=== PATIENT | female | born 1990 | race Caucasian/White ===

== ENCOUNTER 2018-07-02 21:57 | Emergency (ER) | payer SELFPAY ==
[2018-07-02 22:11] VITALS: BP 124/76; PULSE 118; RESP 20; TEMP 36.8; O2SAT 100; BMI 33.2
[2018-07-02] MEDS: HYDROMORPHONE 2 MG INJ 1 MG SUBCUT (22:33)
--- NOTE | 2018-07-02 22:39 | ED.SKABFB ---
HPI - Skin/Abscess/Foreign Bdy General Chief complaint: Skin/Abscess/Foreign Body Stated complaint: SORE LUMP ON TAILBONE Time Seen by Provider: 07/02/18 22:00 Source: patient Mode of arrival: ambulatory Limitations: no limitations History of Present Illness HPI narrative: Patient is a 27-year-old female who presents with buttock pain ongoing for last 2-3 days. She said she could feel something coming on for the last 2 days and then today noticed that there was redness and fluctuation. She cannot sit down. She denies any fevers she has never had anything like this in the past. complaint: abscess/boil Onset (ago): day(s) (3) Severity: severe Quality: sharp Pain Consistency: constant Relieving factors: none Exacerbating factors: movement Related Data Previous Rx's Medication Instructions Recorded sulfamethoxazole-trimethoprim 1 tab PO BID 7 Days #14 tab 07/02/18 [Bactrim DS] Allergies Allergy/AdvReac Type Severity Reaction Status Date / Time morphine [MORPHINE] Allergy Mild ANXIETY Unverified 07/02/18 23:03 Review of Systems Review of Systems GENERAL: Denies chills,fever HEENT: Denies throat pain RESPIRATORY: Denies dyspnea, cough, wheezing CARDIOVASCULAR: Denies chest pain, palpitations GASTROINTESTINAL: Denies nausea, vomiting MUSCULOSKELETAL: Denies extremity pain, injury SKIN: Abscess right buttock NEUROLOGIC: Denies weakness, dizziness, headache, numbness 8 point review of systems is negative except for those stated above and HPI PFSH Surgical History Status post delivery Status post cholecystectomy Family History Father ADHD (attention deficit hyperactivity disorder) Bipolar 1 disorder Mother Interstitial cystitis Social History Smoking Status: Current every day smoker Family History Father ADHD (attention deficit hyperactivity disorder) Bipolar 1 disorder Mother Interstitial cystitis Social History Smoking Status: Current every day smoker Exam Initial Vital Signs Initial Vital Signs: Vital Signs Temperature 98.3 F 07/02/18 22:11 Pulse Rate 118 H 07/02/18 22:11 Respiratory Rate 20 07/02/18 22:11 Blood Pressure 124/76 07/02/18 22:11 Pulse Oximetry 100 07/02/18 22:11 GENERAL: Tearful female in pain CARDIOVASCULAR: peripheral pulses in tact, cap refill <2 sec RESPIRATORY: No respiratory distress, speaks in full sentences without difficulty EXTREMITIES: Normal range of motion, no clubbing or edema. Neurovascularly intact NEUROLOGICAL: Cranial nerves II through XII grossly intact. Normal gait and speech. SKIN: Right buttock superior near medial crack 1 cm x 2 cm fluctuation with erythema extending to the left. Approximately 7 cm of erythema no induration Procedures Abscess I/D Site: stephanie-rectal (Right buttock) Side (if applicable): right Sedation/analgesia: other (Dilaudid 1 mg subcu) Local Anesthetic: lidocaine 2% and with epi Amount of anesthesia used (mL): 4 Technique: incised with #11 blade Amount of fluid expressed (mL): 5 Irrigation: No Packing used?: none Complications: pain and bleeding Course Orders Ordered: ED Orders 07/02/18 23:21 Wound Culture and Gram Stain Stat Discontinued Medications Hydromorphone HCl (Dilaudid) 1 mg SUBCUT Q4H PRN PRN Reason: Pain, Severe (7-10) Last Admin: 07/02/18 22:33 Dose: 1 mg Trimethoprim/Sulfamethoxazole (Bactrim Ds Prepack) 1 bottle MISC SEEINSTR ONE Stop: 07/02/18 23:10 Last Admin: 07/02/18 23:19 Dose: Not Given Trimethoprim/Sulfamethoxazole (Bactrim Ds) 1 tab PO NOW ONE Stop: 07/02/18 23:18 Last Admin: 07/02/18 23:22 Dose: 1 tab Trimethoprim/Sulfamethoxazole (Bactrim Ds) 1 tab PO NOW ONE Stop: 07/02/18 23:20 Last Admin: 07/02/18 23:22 Dose: 1 tab Vital Signs - 8 hr 07/02/18 22:11 07/02/18 23:16 07/02/18 23:32 Temperature 98.3 F 98.7 F Pulse Rate 118 H 121 H Respiratory Rate 20 18 Blood Pressure 124/76 Blood Pressure [Right Arm] 123/74 Pulse Oximetry 100 98 MDM - Skin/Abscess/Foreign Bdy MDM Narrative Medical decision making narrative: Good amount of drainage from abscess. It is cultured. The patient put on antibiotics. Patient persistently tachycardic. She was given Dilaudid for pain. Still pain. She is afebrile. At this time I do not suspect sepsis. Discharge Plan Departure Patient Disposition: Home Clinical Impression: Abscess of skin or subcutaneous tissue Qualifiers: Site of cutaneous abscess: buttock Qualified Code(s): L02.31 - Cutaneous abscess of buttock Discharge Date/Time: 07/02/18 23:33 Interventions: ED Discharge Assessment Last Done: 07/02/18 23:32 Instructions: DI for Incision and Drainage of a Skin Abscess, DI for Skin Abscess Activity Restrictions/Additional Instructions: *You have been diagnosed with right buttock abscess *What to do: keep area clean and dry with soap and water *Continue to take medications as directed Bactrim 1 tablet twice a day for 7 days *Follow up with your primary care provider in 2-3 days *Return to ER if you should have increasing pain, redness, swelling or any new, worsening or concerning symptoms Prescriptions: New sulfamethoxazole-trimethoprim [Bactrim DS] 800-160 mg tablet 1 tab PO BID 7 Days Qty: 14 RF: 0 Stand Alone Forms: Work Release Note
[2018-07-02 23:16] VITALS: BP 123/74; PULSE 121; RESP 18; O2SAT 98
[2018-07-02] MEDS: TRIMETH/SULFA 160/800 (DS) TABLET 1 TAB PO ×2 (23:22)
[2018-07-02 23:32] VITALS: TEMP 37.1
== END 2018-07-02 23:33 | disposition home or self-care (01) ==
PROVIDERS: Emergency Provider Emergency Medicine
DX: L02.31 Cutaneous abscess of buttock (principal)
CPT/HCPCS: 10060; 87070; 87075; 87205; 99282; 99283; J1170

== ENCOUNTER 2018-12-22 15:03 | Emergency (ER) | payer OTHER, SELFPAY ==
[2018-12-22 15:17] VITALS: BP 158/99; PULSE 100; RESP 18; TEMP 37.3; O2SAT 98
[2018-12-22 16:06] LABS: RBC Urine None Seen (0-5/HPF); WBC Urine None Seen (0-5/HPF)
[2018-12-22 16:28] LABS: Bacteria Urine Moderate (10-30); Squamous Epithelial Cell Urine 5-10 /HPF (0-5/HPF)
[2018-12-22 16:29] LABS: Culture Indicated Urine Cult Not Indicated
--- NOTE | 2018-12-22 17:20 | ED.SKABFB ---
HPI - Skin/Abscess/Foreign Bdy <Jayla Camara PA-C - Last Filed: 12/22/18 20:41> General Chief complaint: Skin/Abscess/Foreign Body Stated complaint: Paranial Cyst Time Seen by Provider: 12/22/18 17:02 Source: patient Mode of arrival: ambulatory Limitations: no limitations History of Present Illness HPI narrative: This 28-year-old female comes to ED secondary to persistent, painful pilonidal cyst. She has had this since early in the year, was seen here in June. She states that it never heals, intermittently drains pus and bleeds. Last she went to an urgent care clinic due to worsening pain, inability to work and set at her desk. She was found to have used infection due to the drainage and prescribed nystatin. She was referred to a surgeon near there in [place] and was seen. She states she saw the surgeon today and was advised to quit smoking and this did not need urgent surgery. She states that she does not have a local PCP since moving back here, interfering with ADLs and does not know what to do next. She feels like this has continued to drain because it feels wet, not sure whether blood or pus. She denies fever or other new symptoms today. Related Data Home Medications Medication Instructions Recorded Confirmed nystatin 1 applic TOPICAL BIDX7 12/22/18 Previous Rx's Medication Instructions Recorded amoxicillin-pot clavulanate 1 tab PO Q12H #14 tab 12/22/18 [Augmentin] meloxicam 15 mg PO DAILY #20 tab 12/22/18 Allergies Allergy/AdvReac Type Severity Reaction Status Date / Time morphine [MORPHINE] Allergy Mild ANXIETY Verified 12/22/18 15:20 Review of Systems <Jayla Camara PA-C - Last Filed: 12/22/18 20:41> Review of Systems ROS Unobtainable: All systems reviewed & are unremarkable except as noted in HPI and below PFSH <Jayla Camara PA-C - Last Filed: 12/22/18 20:41> Medical History (Updated 12/22/18 @ 17:49 by Jayla Camara PA-C) Migraine headache (Chronic) Surgical History (Updated 12/22/18 @ 17:49 by Jayla Camara PA-C) Status post cholecystectomy (Chronic) Status post delivery (Chronic) Family History (Updated 08/13/13 @ 00:00 by Destinee Dobbins MD) Father ADHD (attention deficit hyperactivity disorder) Bipolar 1 disorder Mother Interstitial cystitis Social History Smoking Status: Current every day smoker Family History (Updated 08/13/13 @ 00:00 by Destinee Dobbins MD) Father ADHD (attention deficit hyperactivity disorder) Bipolar 1 disorder Mother Interstitial cystitis Social History Smoking Status: Current every day smoker Exam <Jayla Camara PA-C - Last Filed: 12/22/18 20:41> Narrative Exam Narrative: GENERAL APPEARANCE: Patient lying on left side, in NAD, intermittently tearful LUNGS: Clear to auscultation bilaterally. HEART: Rate and rhythm regular without murmur, normal S1 and S2, no S3 or S4. DERMATOLOGIC: Of the proximal border of the gluteal cleft right side there is a tender indurated nodule. This does not feel fluctuant. No erythema. There is dried blood in the cleft. Initial Vital Signs Initial Vital Signs: Vital Signs Temperature 99.1 F 12/22/18 15:17 Pulse Rate 100 H 12/22/18 15:17 Respiratory Rate 18 12/22/18 15:17 Blood Pressure 158/99 H 12/22/18 15:17 Pulse Oximetry 98 12/22/18 15:17 <Thor Stewart DO - Last Filed: 12/23/18 14:56> Initial Vital Signs Initial Vital Signs: Vital Signs Temperature 99.1 F 12/22/18 15:17 Pulse Rate 100 H 12/22/18 15:17 Respiratory Rate 18 12/22/18 15:17 Blood Pressure 158/99 H 12/22/18 15:17 Pulse Oximetry 98 12/22/18 15:17 Course <Jayla Camara PA-C - Last Filed: 12/22/18 20:41> Additional Information: Care management has also seen patient today to give her resources for local PCP. She does appear to have chronic pilonidal cyst, will restart antibiotic and refer to surgery but this does not appear to need acute intervention today. She is agreeable with this plan and will call to schedule appointment. Orders Ordered: ED Orders 12/22/18 15:45 Urine Microscopic Stat Vital Signs - 8 hr 12/22/18 15:17 12/22/18 18:35 Temperature 99.1 F Pulse Rate 100 H 87 Respiratory Rate 18 16 Blood Pressure 158/99 H 121/82 Pulse Oximetry 98 99 <Thor Stewart DO - Last Filed: 12/23/18 14:56> Orders Ordered: ED Orders 12/22/18 15:45 Urine Microscopic Stat Vital Signs - 8 hr 12/22/18 15:17 12/22/18 18:35 Temperature 99.1 F Pulse Rate 100 H 87 Respiratory Rate 18 16 Blood Pressure 158/99 H 121/82 Pulse Oximetry 98 99 MDM - Skin/Abscess/Foreign Bdy <Jayla Camara PA-C - Last Filed: 12/22/18 20:41> Lab Data Lab Results 12/22/18 Range/Units 15:45 Urine RBC None seen (0-5/HPF) Urine WBC None seen (0-5/HPF) Ur Squamous Epith Cells 5-10 /hpf H (0-5/HPF) Urine Bacteria Moderate (10-30) H (None) Ur Culture Indicated? Cult not indicated Point of Care Testing Test Results Negative Urine Dip Bedside Urine Glucose Negative Bedside Urine Bilirubin - Negative Bedside Urine Ketone - Negative Urine Specific Olivia 1.030 Bedside Urine Occult Blood - Negative Bedside Urine pH 6.0 Bedside Urine Protein +/- 15 Bedside Urine Urobilinogen - Negative Bedside Urine Nitrite - Negative Bedside Urine Leukocytes - Negative Esterase <DO Norberto Larkin Last Filed: 12/23/18 14:56> Lab Data Lab Results 12/22/18 Range/Units 15:45 Urine RBC None seen (0-5/HPF) Urine WBC None seen (0-5/HPF) Ur Squamous Epith Cells 5-10 /hpf H (0-5/HPF) Urine Bacteria Moderate (10-30) H (None) Ur Culture Indicated? Cult not indicated Point of Care Testing Test Results Negative Urine Dip Bedside Urine Glucose Negative Bedside Urine Bilirubin - Negative Bedside Urine Ketone - Negative Urine Specific Olivia 1.030 Bedside Urine Occult Blood - Negative Bedside Urine pH 6.0 Bedside Urine Protein +/- 15 Bedside Urine Urobilinogen - Negative Bedside Urine Nitrite - Negative Bedside Urine Leukocytes - Negative Esterase Discharge Plan Departure Patient Disposition: Home Clinical Impression: Pilonidal cyst Discharge Date/Time: 12/22/18 18:36 Interventions: ED Discharge Assessment Last Done: 12/22/18 18:35 Instructions: Pilonidal Cyst Activity Restrictions/Additional Instructions: Please continue Sitz baths and warm compresses as much as possible. Please start the antibiotic this evening (I have sent your prescriptions into [facility] in [place] just to make sure you will have time to pick them up) as well as the once daily anti-inflammatory/pain medicine. Please keep pressure off of the area. I do think you have a cyst that has been infected intermittently, right now it appears to have partially drained and there is dried blood around the area. Please call [facility] (I have given you Dr. Wharton's name because he is heart surgeon today, but you can see any of the surgeons there), and let them know you were seen in the emergency room here for this and we referred you. Also, please call the [facility] human resources receptionist 1st thing tomorrow at [phone] and let them know we have referred you for help getting a primary care provider. Please return to the ED in the interim if you have any acutely worsening symptoms. Please remain off of work for a couple of days while starting the antibiotic since you are not able to avoid sitting Prescriptions: New meloxicam 15 mg tablet 15 mg PO DAILY Qty: 20 RF: 0 amoxicillin-pot clavulanate [Augmentin] 875-125 mg tablet 1 tab PO Q12H Qty: 14 RF: 0 No Action nystatin 100,000 unit/gram cream 1 applic topical [id number] RF: 0 Referrals: Kurt Wharton MD [Physician] - Stand Alone Forms: Work Release Note <Thor Stewart DO - Last Filed: 12/23/18 14:56> Cosign ED Attending Ericature Attestation: I was immediately available in the department for consultation. Documentation has been reviewed. I agree with assessment and plan.
--- NOTE | 2018-12-22 18:09 | CM.SWNOTE ---
ED GAMES DEALER Note: ED Provider mentioned to GAMES DEALER that pt has insurance, but does not have a PCP. Met with pt, gave her a paper with information about PCPs. She is interested in having a doctor in [place] and the list provided gave her information about who is and is not accepting new patients. EXCELLENCE CONSULTANT provided reflective and compassionate listening to patient who is dealing with significant pain and frustration. She reported that prior to coming to the ED today, she was seen by a surgeon who informed her that all she needed to do was to quit smoking. Pt was periodically tearful, due to the pain and frustration. She has a supportive home environment, but the pain has been ongoing for 8 months. She stated that the ED provider informed her that she will provide a referral for her. No other social work needs noted.
[2018-12-22 18:35] VITALS: BP 121/82; PULSE 87; RESP 16; O2SAT 99
== END 2018-12-22 18:36 | disposition home or self-care (01) ==
PROVIDERS: Emergency Medicine; Emergency Provider Internal Medicine
DX: L05.91 Pilonidal cyst without abscess (principal)
CPT/HCPCS: 81003; 81015; 81025; 99282; 99283

== ENCOUNTER 2019-03-17 09:37 | Emergency (ER) | payer SELFPAY ==
[2019-03-17 09:43] VITALS: BP 119/69; PULSE 85; RESP 18; TEMP 36.8; O2SAT 97
--- NOTE | 2019-03-17 10:51 | ED_ITS ---
HPI - Eye Problem General Chief complaint: Eye Problems Stated complaint: left eye pain/h[place]/blurry vision/shuts w/ light Time Seen by Provider: 03/17/19 09:55 Source: patient Mode of arrival: Ambulatory Limitations: no limitations History of Present Illness HPI Narrative: 28F smoker with mental health history presents with L eye pain and watering with some blurred vision for the past few days. She denies any i njury or foreign body exposure. She states that it feels much worse when bright light is shined into her eye, it was worsened when she was driving this morning in the dark and head lights would come straight on. She has had some vague left-sided headache associated with this, but it sounds like it started after the vision change. She denies any history of the same. She has uncorrected vision. She denies any upper respiratory symptoms such as runny nose, sore throat or cough. She denies any skin or face pain nor any rash. She has no pain on the tip of her nose or in her left ear MD chief complaint: eye pain and vision change Onset (ago): day(s) Onset description: gradual Duration: intermittent Location: left eye Eye Symptoms: pain, blurry vision and photophobia Place: home Mechanism: none Severity: moderate If Pain, Quality: aching Associated symptoms: none Treatments Prior to Arrival: none Related Data Patient tetanus UTD: Yes Home Medications Medication Instructions Recorded Confirmed nystatin 1 applic TOPICAL BIDX7 12/22/18 Previous Rx's Medication Instructions Recorded amoxicillin-pot clavulanate 1 tab PO Q12H #14 tab 12/22/18 [Augmentin] meloxicam 15 mg PO DAILY #20 tab 12/22/18 Allergies Allergy/AdvReac Type Severity Reaction Status Date / Time morphine [MORPHINE] Allergy Mild ANXIETY Verified 12/22/18 15:20 Review of Systems Constitutional Constitutional: Denies chills, Denies fatigue, Denies fever(s), Denies frequent falls, Denies lethargy and Denies weakness Eyes Eyes: Denies change in vision, Reports eye discharge, Reports irritation and Denies loss of vision ENT Ears, Nose, Mouth, and Throat: Denies change in voice, Denies dizziness, Denies neck pain, Denies sore throat and Denies throat swelling Cardiovascular Cardiovascular: Denies chest pain, Denies irregular heart rhythm, Denies lightheadedness, Denies palpitations, Denies dyspnea, Denies dyspnea on exertion and Denies orthopnea Respiratory Respiratory: Denies cough, Denies dyspnea, Denies dyspnea on exertion and Denies wheezing Gastrointestinal Gastrointestinal: Denies abdominal pain, Denies change in bowel habits, Denies diarrhea, Denies nausea and Denies vomiting Genitourinary Genitourinary: Denies hematuria, Denies flank pain, Denies urinary incontinence and Denies urinary urgency Musculoskeletal Musculoskeletal: Denies back pain, Denies muscle weakness, Denies neck pain, Denies numbness and Denies tingling Integumentary/Breasts Skin/Breast: Denies pruritus, Denies erythema, Denies rash and Denies wounds Neurologic Neurologic: Denies behavioral changes, Denies confusion, Denies dizziness, Denies frequent falls, Denies loss of vision, Denies numbness, Denies tingling and Denies weakness Psychiatric Psychiatric: Denies anxiety, Denies behavioral changes, Denies confusion, Denies depression, Denies homicidal ideation and Denies suicidal ideation Endocrine Endocrine: Denies fatigue, Denies flushing and Denies palpitations Hematologic/Lymphatic Hematologic/Lymphatic: Denies easy bruising Allergic/Immunologic Allergic/Immunologic: Denies urticaria, Denies throat swelling and Denies wheezing Patient History Medical History Migraine headache (Chronic) Surgical History Status post delivery (Chronic) Status post cholecystectomy (Chronic) Family History Father ADHD (attention deficit hyperactivity disorder) Bipolar 1 disorder Mother Interstitial cystitis Social History Smoking Status: Current every day smoker alcohol intake frequency: holidays/special occasions only Substance Use Type: marijuana Exam Narrative Exam Narrative: GEN: AOx3 and in mild distress EYES: Pupils are equal, round, and reactive to light and accommodation. Extraoccular muscles are intact bilaterally. There is no subconjunctival hemorrhage or exudate. No redenss noted. Viewed under Wood's lamp, no fluorescein uptake. Pressure with TonoPen 21mmHg. CHEST: Lungs are clear to auscultation bilaterally and free of wheezes, rales, or rhonchi. Heart rate is regular rhythm, there are no murmurs, clicks, rubs, or gallops. There is no chest wall tenderness. ABD: Abdomen is soft and nontender. There is no guarding or rebound. Bowel sounds are normal in all 4 quadrants. There is no mass or organomegaly. EXT: Full painless ROM of all extremities with no loss of sensation or strength. SKIN: Warm, pink, and dry. No erythema or rash Initial Vital Signs Initial Vital Signs: Vital Signs Temperature 98.2 F 03/17/19 09:43 Pulse Rate 85 03/17/19 09:43 Respiratory Rate 18 03/17/19 09:43 Blood Pressure 119/69 03/17/19 09:43 Pulse Oximetry 97 03/17/19 09:43 Course Orders Ordered: Discontinued Medications Proparacaine HCl (Parcaine 0.5% Ophth Janessa) 1 drops EYE-LEFT NOW ONE Stop: 03/17/19 10:58 Last Admin: 03/17/19 11:21 Dose: 2 drop Documented by: DANIEL Villalobos Consultation #1: Vital Signs Vital signs: Vital Signs - 8 hr 03/17/19 09:43 Temperature 98.2 F Pulse Rate 85 Respiratory Rate 18 Blood Pressure 119/69 Pulse Oximetry 97 Discharge Plan Departure Patient Disposition: Home Clinical Impression: Acute left eye pain Discharge Date/Time: 03/17/19 12:04 Activity Restrictions/Additional Instructions: *You have been diagnosed with [acute left eye pain ] *What to do: *Take medications as directed: artificial tears *Follow up with [facility] today at 230 as we discussed. *Return to ER if you should have any new, worsening or concerning symptoms ] Prescriptions: No Action nystatin 100,000 unit/gram cream 1 applic topical [id number] RF: 0 meloxicam 15 mg tablet 15 mg PO DAILY Qty: 20 RF: 0 amoxicillin-pot clavulanate [Augmentin] 875-125 mg tablet 1 tab PO Q12H Qty: 14 RF: 0 Referrals: Teodoro Milner MD [Physician] - Stand Alone Forms: Work Release Note
[2019-03-17] MEDS: PROPARACAINE 0.5% OPHTH SOL 1 DROPS EYE-LEFT (11:21)
== END 2019-03-17 12:04 | disposition home or self-care (01) ==
PROVIDERS: Emergency Provider Emergency Medicine
DX: H57.12 Ocular pain, left eye (principal)
CPT/HCPCS: 99282; 99283

== ENCOUNTER 2019-06-17 21:08 | Emergency (ER) | payer OTHER, SELFPAY ==
[2019-06-17 21:55] VITALS: BP 156/104; RESP 110; TEMP 36.6; O2SAT 98
--- NOTE | 2019-06-18 00:09 | ED.SKABFB ---
HPI - Skin/Abscess/Foreign Bdy General Chief complaint: Skin/Abscess/Foreign Body Stated complaint: issue with a cyst Time Seen by Provider: 06/18/19 00:09 Source: patient Mode of arrival: Ambulatory Limitations: no limitations History of Present Illness HPI narrative: 28-year-old woman with a history of pilonidal cyst status post infection I and D surgical intervention to try to move the entire cyst had been doing well for the last year when she developed increasing pain in the intergluteal cleft. Pain at this point has increased to the point that she came in recognizing the drainage was likely going to be required. No fevers, no change to bowel or bladder habits Related Data Home Medications Medication Instructions Recorded Confirmed nystatin 1 applic TOPICAL [id number] 12/22/18 Previous Rx's Medication Instructions Recorded amoxicillin-pot clavulanate 1 tab PO Q12H #14 tab 12/22/18 [Augmentin] meloxicam 15 mg PO DAILY #20 tab 12/22/18 clindamycin HCl 300 mg PO Q8H #21 cap 06/18/19 oxycodone-acetaminophen 1 tab PO Q6H PRN #10 tab 06/18/19 Allergies Allergy/AdvReac Type Severity Reaction Status Date / Time morphine [MORPHINE] Allergy Mild ANXIETY Verified 12/22/18 15:20 Review of Systems Review of Systems Narrative: Denies ? fever ? cough ? cold ? chills ? chest pain ? dyspnea ? orthopnea ? wheezing ? abdominal pain ? change to bowel or bladder habits ? nausea vomiting ? Patient History Medical History Migraine headache (Chronic) Surgical History Status post delivery (Chronic) Status post cholecystectomy (Chronic) Family History Father ADHD (attention deficit hyperactivity disorder) Bipolar 1 disorder Mother Interstitial cystitis Social History Smoking Status: Current every day smoker Smoking Status: Current every day smoker alcohol intake frequency: holidays/special occasions only Substance Use Type: marijuana Exam Narrative Exam Narrative: General: Alert appropriate in no acute distress Respiratory: Able to speak in full sentences, no obvious respiratory distress Skin: No obvious rashes, warm and dry. 1.5 cm area at the top of the intergluteal cleft with developing abscess and purulence drainage. No surrounding cellulitis Neurologic: Grossly intact no obvious asymmetries or abnormalities Psych, appropriate insight and affect, cooperative Initial Vital Signs Initial Vital Signs: Vital Signs Temperature 98 F 06/17/19 21:55 Respiratory Rate 110 H 06/17/19 21:55 Blood Pressure 156/104 H 06/17/19 21:55 Pulse Oximetry 98 06/17/19 21:55 Procedures Abscess I/D I&D #1: Site: other (Pilonidal cyst, top of the intergluteal cleft) Side (if applicable): right Local Anesthetic: lidocaine 1% Amount of anesthesia used (mL): 5 Technique: incised with #11 blade Amount of fluid expressed (mL): 8 Irrigation: No Packing used?: plain Complications: pain Course Orders Ordered: ED Orders 06/18/19 01:20 Wound Culture and Gram Stain Stat Discontinued Medications Ibuprofen (Advil) 400 mg PO NOW ONE Stop: 06/18/19 00:16 Last Admin: 06/18/19 00:23 Dose: 400 mg Documented by: HARVEY Lidocaine HCl (Xylocaine 1%) 10 ml INJ NOW ONE Stop: 06/18/19 00:35 Last Admin: 06/18/19 00:59 Dose: Not Given Documented by: TARSHA Lidocaine HCl (Xylocaine 1%) 3 ml INJ INTRA-OP ONE Stop: 06/18/19 00:40 Last Admin: 06/18/19 00:59 Dose: Not Given Documented by: TARSHA Lidocaine HCl (Xylocaine 1%) 6 ml INJ INTRA-OP ONE Stop: 06/18/19 00:50 Last Admin: 06/18/19 00:59 Dose: Not Given Documented by: TARSHA Lidocaine HCl (Xylocaine 1% (Pf)) 4 ml SUBCUT NOW ONE Stop: 06/18/19 00:59 Last Admin: 06/18/19 01:00 Dose: 4 ml Documented by: LUCI Oxycodone/Acetaminophen (Percocet 5/325) 2 tab PO NOW ONE Stop: 06/18/19 00:16 Last Admin: 06/18/19 00:23 Dose: 2 tab Documented by: HARVEY Vital Signs Vital signs: Vital Signs - 8 hr 06/17/19 21:55 06/18/19 01:14 Temperature 98 F Pulse Rate 111 H Respiratory Rate 110 H 20 Blood Pressure 156/104 H Blood Pressure [Left Arm] 107/92 H Pulse Oximetry 98 98 MDM - Skin/Abscess/Foreign Bdy Medical Records Attestation: I reviewed the patient's medical records. MDM Narrative Medical decision making narrative: Pilonidal cyst with out significant cellulitis or deeper extending abscess. Simple I and D in the emergency department as small amount of packing placed to keep the incision open for at least 24 hours. Referred patient back to general surgery for definitive care after the current pilonidal infection has resolved Discharge Plan Departure Patient Disposition: Home Clinical Impression: Cyst, pilonidal, with abscess Clinical Impression: (Ruled Out): Right lower quadrant abdominal pain Discharge Date/Time: 06/18/19 01:27 Instructions: DI for Pilonidal Cyst Drainage and Removal Activity Restrictions/Additional Instructions: You do have a pilonidal cyst. It has been drained. The discharge has been sent for culture. I am going to put you on clindamycin, 300mg 3x/day to help with infection. Please leave the drain in for at least 24 hours. You can remove it when you are in the shower. Do expect continued drainage for a few days. Use 1 percoset and 2 over the counter ibuprofen every 6 hours as needed to help control pain. Please schedule an apt with [facility] to discuss more definitive treatment of this cyst. I hope you heal quickly. Prescriptions: New oxycodone-acetaminophen 5-325 mg tablet 1 tab PO Q6H PRN (Reason: pain) Qty: 10 RF: 0 clindamycin HCl 300 mg capsule 300 mg PO Q8H Qty: 21 RF: 0 No Action nystatin 100,000 unit/gram cream 1 applic topical [id number] RF: 0 meloxicam 15 mg tablet 15 mg PO DAILY Qty: 20 RF: 0 amoxicillin-pot clavulanate [Augmentin] 875-125 mg tablet 1 tab PO Q12H Qty: 14 RF: 0 Referrals: Carlos Rangel MD [Physician] -
[2019-06-18] MEDS: IBUPROFEN 400 MG TABLET PO (00:23)
[2019-06-18] MEDS: OXYCODONE/ACETAMINOPHEN 5/325 TABLET 2 TAB PO (00:23)
[2019-06-18] MEDS: LIDOCAINE 1% (PF) 2 ML (00:55)
[2019-06-18] MEDS: LIDOCAINE 1% (PF) 4 ML (00:56)
[2019-06-18] MEDS: LIDOCAINE 1% (PF) 4 ML SUBCUT (01:00)
[2019-06-18 01:14] VITALS: BP 107/92; PULSE 111; RESP 20; O2SAT 98
--- NOTE | 2019-06-18 01:26 | PC.NURSE ---
DR Guaman drained the cyst on her tailbone and packed it.I was not in the room with her.
== END 2019-06-18 01:27 | disposition home or self-care (01) ==
PROVIDERS: Emergency Provider Emergency Medicine
DX: L05.01 Pilonidal cyst with abscess (principal)
CPT/HCPCS: 10060; 87070; 87077; 87186; 87205; 99283

== ENCOUNTER 2019-07-06 09:03 | Day surgery (SDC) | payer OTHER, SELFPAY ==
[2019-07-03 11:56] VITALS: BMI 33.7
[2019-07-06] VITALS (11 sets, daily range): BP systolic 102–124; BP diastolic 63–84; PULSE 75–103; RESP 10–21; TEMP 36.3–36.7; O2SAT 97–100; BMI 33.7
[2019-07-06] MEDS: LACTATED RINGERS 1,000 ML 42 ML IV (09:31)
--- NOTE | 2019-07-06 09:31 | PM.PREOP ---
Pre-operative Note Interval Note History & Physical reviewed/Exam performed by Physician: Yes Changes to H&P: No
[2019-07-06] MEDS: CEFAZOLIN 2 GM/100 ML FROZ.PIGGY IV (09:47)
[2019-07-06] MEDS: CLINDAMYCIN 900 MG/50 ML PIGGYBACK 50 MG IV (10:07)
--- NOTE | 2019-07-06 10:24 | SUR.OPER ---
Prone on padded OR bed, head in foam head support, gel chest rolls, gel pad under knees, pillow under lower legs, toes free of pressure, arms secured on padded arm boards at <90 degrees abduction. Safety belt at waist
[2019-07-06] MEDS: BUPIVACAINE 0.5% W/ EPI (PF) 10 ML VIAL 30 ML INJ (10:31)
[2019-07-06] MEDS: BACITRACIN 28 GM OINT 1 APPLIC TOP (10:32)
--- NOTE | 2019-07-06 11:02 | PM.OP.1 ---
Operative Date/Time/Diagnoses Date of procedure: 07/06/19 Time of procedure: 11:02 Pre-op diagnosis: Recurrence pilonidal cyst Post-op diagnosis: same Procedure & Clinicians Procedure: Excision of complicated closure post Same procedure as scheduled: Yes Indications: Recurrent symptoms in the area of a pilonidal cyst that has been incised and drained in the distant past Surgeon: Carlos Rangel Click Yes if Unassisted: Yes Anesthesia Type: General Operative Notes Findings: Area 6 x 4 cm excised with shift of the closure off midline. Closure Type: primary Specimen(s): other (Pilonidal cyst) Prosthetic devices, grafts, tissues, transplants, or devices: None Estimated Blood Loss (mL): 10 Blood products transfused: none Procedure in detail: The patient was this omkar-knife prone on the operating room table after undergoing general endotracheal anesthesia. She had been appropriately padded. She was prepped and draped in the usual fashion. Local anesthetic was infiltrated in a field block fashion around the area involved. Any lips was made with the closure to be centered just to the right of midline. The entire area was excised. I did not appear to enter into the cyst or chronic inflamed cavity. He stasis was achieved with cautery. The fat at the right side was incised about 1-1 and have cm below skin level to allow for some movement of the skin. The deep subcu was closed with interrupted 2 0 Vicryl. More superficially 3 0 Vicryl was used to close the subcu and the skin was brought together with interrupted 4 0 Vicryl and finally closed with interrupted vertical mattress 3 0 nylon sutures dressing was applied and the patient was flipped back onto her stretcher extubated taken recovery area in good condition Complications: none Post-operative Condition: stable Disposition: PACU Plan for aftercare: Follow-up in the office
[2019-07-06] MEDS: fentaNYL 100 MCG/2 ML INJ IV ×2 (11:28→11:38)
--- NOTE | 2019-07-06 11:31 | SUR.PHASEI ---
Pt arrived with oral airway, airway out, breathing on own no difficulty, medicated with fentanyl.
[2019-07-06] MEDS: OXYCODONE/ACETAMINOPHEN 5/325 TABLET 1 TAB PO (11:59)
== END 2019-07-06 12:53 | disposition home or self-care (01) ==
PROVIDERS: Referring Provider Specialist; Visit Provider Specialist
PROC: (CPT 11771; principal; 2019-07-06 10:15)
DX: L05.91 Pilonidal cyst without abscess (principal)
CPT/HCPCS: 11771; J0330; J0690; J1100; J1885; J2250; J2405; J2704; J3010

== ENCOUNTER 2019-08-03 10:00 | Emergency (ER) | payer OTHER, SELFPAY ==
--- NOTE | 2019-08-03 | DI.US.S_ITS ---
PROCEDURE: US PELVIC COMPLETE INDICATIONS: RLQ PAIN TECHNIQUE: Real-time scanning was performed of the pelvic organs, with image documentation. Additional endovaginal scanning was necessary due to incomplete visualization of the adnexal and endometrial structures by transabdominal scanning. COMPARISON: [facility], , PELVIC COMPLETE, 04/23/2014, 23:43. FINDINGS: Transabdominal scanning: Limited scanning through the kidneys shows no hydronephrosis. No pathologic free abdominal or pelvic fluid. Endovaginal scanning: Uterus: Uterus is normal in size at 4.2 x 4.6 x 6.1 cm. The endometrium measures 16 mm in combined thickness. Intrauterine device is noted in appropriate location. Ovaries: Right ovary measures 36 x 25 x 40 mm. The left ovary measures 29 x 15 x 23 mm. There is a complex focus within the right ovary measuring 37 x 25 x 27 mm. IMPRESSION: Complex right ovarian cyst as above. Dictated by: Mojgan Kelsey M.D. on 08/03/2019 at 13:01 Approved by: Mojgan Kelsey M.D. on 08/03/2019 at 13:02
[2019-08-03 10:07] VITALS: BP 114/96; PULSE 91; RESP 18; TEMP 36.6; O2SAT 98; BMI 35.2
--- NOTE | 2019-08-03 10:10 | ED.GENADULT ---
HPI - General Adult General Chief complaint: Abdominal Pain Stated complaint: POSSIBLE RUPTURE OF RIGHT SIDE CYCST Time Seen by Provider: 08/03/19 10:09 History of Present Illness HPI narrative: 28-year-old woman with past medical history significant for pilonidal cyst for which she had surgery a week and half ago. Presents with acute onset right lower quadrant pain starting last night associated with nausea vomiting low-grade fever slight dizziness when she stands up and headache. Gotten worse over the last 12 hours and she notes it is severe enough that when she doubles over in pain the pain is radiating up to her right flank and along to the upper portion of the right buttocks which is close to her recent pilonidal cyst surgical site . Related Data Previous Rx's Medication Instructions Recorded cephalexin 500 mg capsule 500 mg PO QID #20 cap 07/29/19 metronidazole 500 mg tablet 500 mg PO TID #14 tab 07/29/19 Allergies Allergy/AdvReac Type Severity Reaction Status Date / Time morphine [MORPHINE] Allergy Mild ANXIETY Verified 07/29/19 15:43 Review of Systems Review of Systems Narrative: All systems reviewed and are unremarkable except as noted in HPI and below Patient History Medical History Anxiety (Acute) Bipolar affective disorder (Acute) Migraine headache (Chronic) Ovarian cyst (Acute) PTSD (post-traumatic stress disorder) (Acute) Surgical History History of excision of pilonidal cyst (Inactive) Status post delivery (Chronic) Status post cholecystectomy (Chronic) Family History Father ADHD (attention deficit hyperactivity disorder) Bipolar 1 disorder Mother Interstitial cystitis Social History marital status: household members: spouse and children occupational status: employed Smoking Status: Current every day smoker alcohol intake: current substance use type: does not use Smoking Status: Current every day smoker alcohol intake frequency: holidays/special occasions only Substance Use Type: marijuana Exam Narrative Exam Narrative: General: Healthy appearing, in acute pain. Able to give a complete and coherent history. Well-nourished well-developed HEENT: Moist mucous membranes, normal sclera with reactive pupils, Neck: No JVD, supple Respiratory: Lungs are clear to auscultation, no wheezing no rales no rhonchi. Full and symmetrical air movement Cardiac: Regular rate and rhythm no murmurs no bruits Abdomen: Soft, tender in the right lower quadrant with mild rebound, no guarding. Radiates to the right flank. Hypoactive bowel tones, Skin: Warm and dry, no rashes. Pilonidal cyst surgical site is well healed, nontender, no fluctuance, no erythema Neurologic: Grossly neurologically intact with no obvious asymmetries or abnormalities Extremities: No trauma, well perfused Psych: Cooperative, appropriate insight and affect Initial Vital Signs Initial Vital Signs: Vital Signs Temperature 97.8 F 08/03/19 10:07 Pulse Rate 91 H 08/03/19 10:07 Respiratory Rate 18 08/03/19 10:07 Blood Pressure 114/96 H 08/03/19 10:07 Pulse Oximetry 98 08/03/19 10:07 Course Orders Ordered: ED Orders 08/03/19 10:23 Urinalysis and Microscopic Stat 08/03/19 10:25 Complete Blood Count AUTO DIFF Stat Comprehensive Metabolic Panel Stat 08/03/19 10:58 US abdomen limited Stat Discontinued Medications Hydromorphone HCl (Dilaudid) 0.5 mg IV NOW ONE Stop: 08/03/19 10:24 Last Admin: 08/03/19 10:35 Dose: 0.5 mg Documented by: EKATERINAT Sodium Chloride (Normal Saline 0.9%) 1,000 mls @ 1,000 mls/hr IV BOLUS ONE Stop: 08/03/19 11:22 Last Infusion: 08/03/19 13:00 Dose: 0 mls/hr Documented by: Admin: 08/03/19 10:36 Dose: 1,000 mls/hr Documented by: CPRARTUROT Ondansetron HCl (Zofran) 4 mg IV NOW ONE Stop: 08/03/19 10:24 Last Admin: 08/03/19 10:35 Dose: 4 mg Documented by: CPRARTUROT Vital Signs Vital signs: Vital Signs - 8 hr 08/03/19 10:07 08/03/19 11:18 08/03/19 12:31 Temperature 97.8 F Pulse Rate 91 H 88 76 Respiratory Rate 18 14 14 Blood Pressure 114/96 H Blood Pressure [Right Arm] 144/66 H 125/70 Pulse Oximetry 98 98 99 Medical Decision Making Medical Records Medical records reviewed: Yes I reviewed the patient's medical records. Lab Data Lab results reviewed: Yes I reviewed the patient's lab results. Result diagrams: 08/03/19 10:25 08/03/19 10:25 Labs: Lab Results 08/03/19 08/03/19 Range/Units 10:25 10:25 WBC 5.1 (4.5-11.0) X10^3/uL RBC 4.15 (4.0-5.2) X10^6/uL Hgb 13.9 (12.0-16.0) g/dL Hct 39.3 (36-46) % MCV 94.8 (80-100) fL MCH 33.4 (26-34) PG MCHC 35.2 (30-36) % RDW 11.9 (11.6-14.8) % Plt Count 337 (150-400) X10^3/uL Neut % (Auto) 48.1 L (50-75) % Lymph % (Auto) 39.6 (25-40) % [place] % (Auto) 6.6 (3-14) % Eos % (Auto) 4.3 H (2-4) % Baso % (Auto) 1.4 (0-2) % Neut # (Auto) 2400 (7410-8244) /uL Lymph # (Auto) 2000 (2066-6947) /uL [place] # (Auto) 300 (0-900) /uL Eos # (Auto) 200 (0-450) /uL Baso # (Auto) 100 (0-100) /uL Sodium 137 (137-145) mmol/L Potassium 4.0 (3.4-5.1) mmol/L Chloride 105 (98-107) mmol/L Carbon Dioxide 25 (22-32) mmol/L BUN 6 L (7-17) mg/dL Creatinine 0.60 (0.52-1.04) mg/dL Estimated GFR > 60.0 (>60) mL/min BUN/Creatinine Ratio 10.0 (6-22) Glucose 101 H (70-100) mg/dL Calcium 9.3 (8.4-10.2) mg/dL Total Bilirubin 0.2 (0.2-1.3) mg/dL AST 45 H (14-36) IU/L ALT 45 H (<35) IU/L Alkaline Phosphatase 71 (38-126) U/L Total Protein 7.5 (6.3-8.2) g/dL Albumin 4.5 (3.5-5.0) g/dL Globulin 3.0 (1.7-4.1) g/dL Albumin/Globulin Ratio 1.5 (1.0-2.8) Point of Care Testing Test Results Negative Point of care testing: Point of Care Testing Test Results Negative Imaging Data Pelvic ultrasound: Radiologist's Impression: IMPRESSION: 1. Complex right ovarian cyst. 2. Dilated serpiginous structure suspected to represent adjacent hydrosalpinx on the right. Dictated by: Mojgan Kelsey M.D. on 08/03/2019 at 12:40 Limited abdominal ultrasound: Radiologist's Impression: IMPRESSION: Nonvisualization of the appendix well-visualized adenopathy or free fluid. Dictated by: Mojgan Kelsey M.D. on 08/03/2019 at 12:39 MDM Narrative Medical decision making narrative: 28-year-old woman with a Mirena IUD for control presents with right lower quadrant pain and has a complex focus within the right ovary. Scan was reviewed by myself and Dr. Askew. He agrees that watchful waiting would be appropriate with non emergent follow-up recommended. Findings are shared with Lilly. She is feeling better. Recommended to Naprosyn b.i.d. and as needed Tylenol through the day to help with the cyst pain. Encouraged her to come back if she is having worsening pain or lightheadedness and clearly reviewed signs and symptoms of cyst rupture with intraperitoneal bleeding. At this time she is safe for home discharge Discharge Plan Departure Patient Disposition: Home Clinical Impression: Complex cyst of right ovary Instructions: DI for Ovarian Cyst Activity Restrictions/Additional Instructions: Thank you for coming in today Your workup is reassuring. There is no evidence of acute like threatening issue today. You do have a right ovarian cyst that is causing your discomfort. At this time, it is safe to see if your body will simply resorb this cyst. I would recommend 2 Aleve in the morning and 2 Aleve at night since every day for the next few days to deal with the pain. After that you can use it only as needed. If you are having additional pain throughout the day you can add Tylenol. At some point in the future you will need to be seen by db2 systems programmer to make sure that this cyst has completely resolved. If you have worsening pain or increasing dizziness it would be very appropriate to return to the emergency department for additional evaluation. Please do initial of your antibiotics related to the pilonidal cyst procedure I wish you the best in healing. Prescriptions: No Action metronidazole [Flagyl] 500 mg tablet 500 mg PO TID Qty: 14 RF: 0 cephalexin [Keflex] 500 mg capsule 500 mg PO QID Qty: 20 RF: 0
[2019-08-03 10:35] LABS: Add Manual Diff / Slide Review NO; Basophils Absolute Auto 100 /uL (0-100); Basophils Percent Auto 1.4 % (0-2); Eosinophils Absolute Auto 200 /uL (0-450); Eosinophils Percent Auto 4.3 % (2-4); Hematocrit 39.3 % (36-46); Hemoglobin 13.9 g/dL (12.0-16.0); Lymphocytes Absolute Auto 2000 /uL (1100-4500); Lymphocytes Percent Auto 39.6 % (25-40); Mean Corpuscular HGB Conc 35.2 % (30-36); Mean Corpuscular Hemoglobin 33.4 PG (26-34); Mean Corpuscular Volume 94.8 fL (80-100); Monocytes Absolute Auto 300 /uL (0-900); Monocytes Percent Auto 6.6 % (3-14); Neutrophils Absolute Auto 2400 /uL (1500-7000); Neutrophils Percent Auto 48.1 % (50-75); Platelet Count 337 X10^3/uL (150-400); Red Blood Cell Count 4.15 X10^6/uL (4.0-5.2); Red Cell Distribution Width 11.9 % (11.6-14.8); White Blood Cell Count 5.1 X10^3/uL (4.5-11.0)
[2019-08-03] MEDS: HYDROMORPHONE 0.5 MG INJ IV (10:35)
[2019-08-03] MEDS: ONDANSETRON 4 MG/2 ML INJ IV (10:35)
[2019-08-03] MEDS: SODIUM CHLORIDE 0.9% 1,000 ML 1000 ML IV (10:36)
[2019-08-03 10:51] LABS: Alanine Aminotransferase 45 IU/L (<35); Albumin 4.5 g/dL (3.5-5.0); Albumin Globulin Ratio 1.5 (1.0-2.8); Alkaline Phosphatase 71 U/L (38-126); Aspartate Aminotransferase 45 IU/L (14-36); Bilirubin Total 0.2 mg/dL (0.2-1.3); Blood Urea Nitrogen 6 mg/dL (7-17); Calcium 9.3 mg/dL (8.4-10.2); Carbon Dioxide 25 mmol/L (22-32); Chloride 105 mmol/L (98-107); Estimated Glomerular Filt Rate > 60.0 mL/min (>60); Glucose 101 mg/dL (70-100); HEMOLYSIS < 15 (0-50); Sodium 137 mmol/L (137-145); Total Protein 7.5 g/dL (6.3-8.2)
--- NOTE | 2019-08-03 10:58 | DI.US.S_ITS ---
PROCEDURE: US ABDOMEN LIMITED INDICATIONS: RLQ PAIN. APPENDICITIS OR GYNECOLOGICAL ISSUE TECHNIQUE: Real-time focused scanning was performed of the abdomen with attention to the appendix, with image documentation. COMPARISON: [facility], US, US PELVIC COMPLETE, 08/03/2019, 12:01. [facility], CT, ABDOMEN/PELVIS WITH CONTRAST, 05/09/2015, 23:53. FINDINGS: Appendix visualization: Not visualized Associated findings: Tenderness on exam: Present Adenopathy: No visualized enlarged lymph nodes. No free fluid. IMPRESSION: Nonvisualization of the appendix well-visualized adenopathy or free fluid. Dictated by: Mojgan Kelsey M.D. on 08/03/2019 at 12:39 Approved by: Mojgan Kelsey M.D. on 08/03/2019 at 12:40
[2019-08-03 11:18] VITALS: BP 144/66; PULSE 88; RESP 14; O2SAT 98
[2019-08-03 12:31] VITALS: BP 125/70; PULSE 76; RESP 14; O2SAT 99
[2019-08-03 14:57] VITALS: BP 125/70; PULSE 88; RESP 14; O2SAT 98
[2019-08-03] MEDS: KETOROLAC 60 MG/2 ML VIAL 15 MG IV (14:57)
== END 2019-08-03 15:00 | disposition home or self-care (01) ==
PROVIDERS: Emergency Provider Emergency Medicine
DX: N83.201 Unspecified ovarian cyst, right side (principal)
CPT/HCPCS: 36415; 76705; 76830; 76856; 80053; 81025; 85025; 96361; 96374; 96375; 99284; J1170; J1885; J2405

== ENCOUNTER → 2019-08-13 14:58 | Outpatient (CLI) | payer OTHER, SELFPAY ==
[2019-08-14 11:10] LABS: Influenza A - CEPHEID Flu A NEGATIVE (NEGATIVE); Influenza B - CEPHEID Flu B NEGATIVE (NEGATIVE)
[2019-08-17 06:03] LABS: COVID19 Sendout Not Detected (Not Detected)
== END ==
PROVIDERS: Visit Provider Registered Nurse
DX: R05 Cough (principal); R50.9 Fever, unspecified
CPT/HCPCS: 87502; 87635

== ENCOUNTER 2020-02-28 22:37 | Emergency (ER) | payer SELFPAY ==
[2020-02-28 22:47] VITALS: BP 144/63; PULSE 77; RESP 18; TEMP 36.8; O2SAT 99
--- NOTE | 2020-02-28 22:56 | ED.BACK ---
HPI - Back Pain/Injury General Chief Complaint: Extremity Injury, Upper Stated Complaint: stretching led to pain in back Time Seen by Provider: 02/28/20 22:41 Source: patient Mode of arrival: Ambulatory Limitations: no limitations History of Present Illness HPI Narrative: 29-year-old female daily smoker with history of migraines presents with a chief complaint of severe right upper back pain since playing around with her niece earlier this evening. She had attempted to pass a broomstick from the front to her back without bending her elbow and felt a sudden pain in her right upper back underneath her shoulder blade. She has full but painful range of motion and denies any numbness, tingling or weakness. Her pain is worse with motion and improves with rest. MD Complaint: back pain and back injury Onset (ago): hour(s) Duration: constant Similar Symptoms Previously: No Location: thoracic spine Severity: severe Quality: sharp Radiation: none Relieving factors: immobilization Exacerbating factors: movement Context: turning/twisting Associated symptoms: denies other symptoms Related Data Previous Rx's Medication Instructions Recorded cephalexin 500 mg capsule 500 mg PO QID #20 cap 07/29/19 metronidazole 500 mg tablet 500 mg PO TID #14 tab 07/29/19 cyclobenzaprine 10 mg PO TID PRN #14 tab 02/28/20 ketorolac 10 mg PO Q6H PRN #14 tab 02/28/20 Allergies Allergy/AdvReac Type Severity Reaction Status Date / Time morphine [MORPHINE] Allergy Mild ANXIETY Verified 08/05/19 09:48 Review of Systems Constitutional Constitutional: Denies chills, Denies fatigue, Denies fever(s), Denies frequent falls, Denies lethargy and Denies weakness Eyes Eyes: Denies change in vision, Denies eye discharge, Denies irritation and Denies loss of vision ENT Ears, Nose, Mouth, and Throat: Denies change in voice, Denies dizziness, Denies neck pain, Denies sore throat and Denies throat swelling Cardiovascular Cardiovascular: Denies chest pain, Denies irregular heart rhythm, Denies lightheadedness, Denies palpitations, Denies dyspnea, Denies dyspnea on exertion and Denies orthopnea Respiratory Respiratory: Denies cough, Denies dyspnea, Denies dyspnea on exertion and Denies wheezing Gastrointestinal Gastrointestinal: Denies abdominal pain, Denies change in bowel habits, Denies diarrhea, Denies nausea and Denies vomiting Musculoskeletal Musculoskeletal: Reports back pain, Denies neck pain and Denies numbness Integumentary/Breasts Skin/Breast: Denies pruritus, Denies erythema, Denies rash and Denies wounds Neurologic Neurologic: Denies behavioral changes, Denies confusion, Denies dizziness, Denies frequent falls, Denies loss of vision, Denies numbness and Denies weakness Psychiatric Psychiatric: Denies anxiety, Denies behavioral changes, Denies confusion, Denies depression, Denies homicidal ideation and Denies suicidal ideation Endocrine Endocrine: Denies fatigue, Denies flushing and Denies palpitations Hematologic/Lymphatic Hematologic/Lymphatic: Denies easy bruising Allergic/Immunologic Allergic/Immunologic: Denies urticaria, Denies throat swelling and Denies wheezing Patient History Medical History Anxiety (Acute) Bipolar affective disorder (Acute) Migraine headache (Chronic) Ovarian cyst (Acute) PTSD (post-traumatic stress disorder) (Acute) Surgical History History of excision of pilonidal cyst (Inactive) Status post delivery (Chronic) Status post cholecystectomy (Chronic) Family History Father ADHD (attention deficit hyperactivity disorder) Bipolar 1 disorder Mother Interstitial cystitis Social History marital status: household members: spouse and children occupational status: employed Smoking Status: Current every day smoker alcohol intake: current substance use type: does not use Smoking Status: Current every day smoker tobacco type: cigarettes alcohol intake frequency: holidays/special occasions only Substance Use Type: marijuana Exam Narrative Exam Narrative: GEN: AOx3 and in mild distress EYES: Pupils are equal, round, and reactive to light and accommodation. Extraoccular muscles are intact bilaterally. There is no subconjunctival hemorrhage or exudate. CHEST: Lungs are clear to auscultation bilaterally and free of wheezes, rales, or rhonchi. Heart rate is regular rhythm, there are no murmurs, clicks, rubs, or gallops. There is no chest wall tenderness. ABD: Abdomen is soft and nontender. There is no guarding or rebound. Bowel sounds are normal in all 4 quadrants. There is no mass or organomegaly. EXT: Full painless ROM of all extremities with no loss of sensation or strength. BACK: Tender to palpation under R scapula, worse with palpation and motion of RUE. No palpable mass or crepitance. SKIN: Warm, pink, and dry. No erythema or rash Initial Vital Signs Initial Vital Signs: Vital Signs Temperature 98.2 F 02/28/20 22:47 Pulse Rate 77 02/28/20 22:47 Respiratory Rate 18 02/28/20 22:47 Blood Pressure 144/63 H 02/28/20 22:47 Pulse Oximetry 99 02/28/20 22:47 Procedures Orthopedic Splinting/Casting Injury #1: Side: right Upper Extremity Injury Location: shoulder Upper Extremity Immobilizer: sling/shoulder immobilizer Post splinting neuro exam: intact Post splinting vascular exam: intact Placed by: Nursing Course Orders Ordered: Discontinued Medications Hydrocodone Bitart/Acetaminophen (Vicodin 5/325 Prepack) 1 bottle MISC SEEINSTR ONE Stop: 02/28/20 23:04 Last Admin: 02/28/20 23:12 Dose: 1 bottle Documented by: RDIN Cyclobenzaprine HCl (Flexeril 10 Mg Prepack) 1 bottle MISC SEEINSTR ONE Stop: 02/28/20 23:04 Last Admin: 02/28/20 23:12 Dose: 1 bottle Documented by: CARLOS Ketorolac Tromethamine (Toradol) 60 mg IM NOW ONE Stop: 02/28/20 23:04 Last Admin: 02/28/20 23:11 Dose: 60 mg Documented by: CARLOS Vital Signs Vital signs: Vital Signs - 8 hr 02/28/20 22:47 Temperature 98.2 F Pulse Rate 77 Respiratory Rate 18 Blood Pressure 144/63 H Pulse Oximetry 99 Discharge Plan Departure Patient Disposition: Home Clinical Impression: Acute thoracic myofascial strain Qualifiers: Encounter type: initial encounter Qualified Code(s): S29.019A - Strain of muscle and tendon of unspecified wall of thorax, initial encounter Discharge Date/Time: 02/28/20 23:21 Instructions: DI for Thoracic Back Pain Activity Restrictions/Additional Instructions: *You have been diagnosed with [acute thoracic myofascial strain] *What to do: *Take medications as directed *Follow up with your primary care provider in 2-3 days, call for an appointment. Let them know you were seen in the Emergency Department and that we ask that you be seen in follow up *Return to ER if you should have any new, worsening or concerning symptoms Prescriptions: New cyclobenzaprine 10 mg tablet 10 mg PO TID PRN (Reason: muscle spasm) Qty: 14 RF: 0 ketorolac 10 mg tablet 10 mg PO Q6H PRN (Reason: pain) Qty: 14 RF: 0 No Action metronidazole [Flagyl] 500 mg tablet 500 mg PO TID Qty: 14 RF: 0 cephalexin [Keflex] 500 mg capsule 500 mg PO QID Qty: 20 RF: 0
[2020-02-28] MEDS: KETOROLAC 60 MG/2 ML VIAL IM (23:11)
[2020-02-28] MEDS: CYCLOBENZAPRINE 10 MG PREPACK 1 BOTTLE MISC (23:12)
[2020-02-28] MEDS: HYDROCODONE/ACET 5/325 PREPACK 1 BOTTLE MISC (23:12)
== END 2020-02-28 23:21 | disposition home or self-care (01) ==
PROVIDERS: Emergency Provider Emergency Medicine
DX: S29.019A Strain of muscle and tendon of unspecified wall of thorax, initial encounter (principal)
CPT/HCPCS: 96372; 99283; J1885

== ENCOUNTER 2020-11-14 11:15 | Emergency (ER) | payer SELFPAY ==
[2020-11-14 11:22] VITALS: BP 117/81; PULSE 83; RESP 14; TEMP 36.7; O2SAT 99
[2020-11-14] MEDS: ONDANSETRON 4 MG ODT PO (11:27)
[2020-11-14 14:31] VITALS: BP 110/70; PULSE 78; TEMP 37.4; O2SAT 94
[2020-11-14] MEDS: SODIUM CHLORIDE 0.9% 1,000 ML 1000 ML IV (14:43)
[2020-11-14] MEDS: diphenhydrAMINE 50 MG/ML VIAL 25 MG IV (15:09)
[2020-11-14] MEDS: METOCLOPRAMIDE 10 MG/2 ML INJ IV (15:11)
[2020-11-14] MEDS: KETOROLAC 30 MG/ML VIAL 15 MG IV (15:13)
--- NOTE | 2020-11-14 16:13 | ED_ITS ---
HPI - Headache General Chief Complaint: Headache Stated Complaint: migraine, started this morning, nausea, vomiting Time Seen by Provider: 11/14/20 16:13 Source: patient and family Mode of arrival: Wheelchair Limitations: no limitations History of Present Illness HPI Narrative: 29-year-old female comes with complaint of migraine. Patient states her to pattern but slightly worse intensity. She is to have quite fr equent migraines and had not had them recently. Patient states she had nausea vomiting this morning with her typical aura. Patient states she was unable to keep anything down so she came here in the department. She states used to be on a sumatriptan type medication but stopped that is it was on fever helpful. She has not had any new recent exacerbated factors such as dehydration, insomnia any new medications or other changes. Patient denies any other medical issues. Related Data Previous Rx's Medication Instructions Recorded cephalexin 500 mg capsule 500 mg PO QID #20 cap 07/29/19 metronidazole 500 mg tablet 500 mg PO TID #14 tab 07/29/19 cyclobenzaprine 10 mg PO TID PRN #14 tab 02/28/20 ketorolac 10 mg PO Q6H PRN #14 tab 02/28/20 Allergies Allergy/AdvReac Type Severity Reaction Status Date / Time morphine [MORPHINE] Allergy Mild ANXIETY Verified 11/14/20 11:25 Review of Systems Review of Systems ROS Unobtainable: All systems reviewed & are unremarkable except as noted in HPI and below Patient History Medical History Anxiety Bipolar affective disorder Migraine headache Ovarian cyst PTSD (post-traumatic stress disorder) Surgical History History of excision of pilonidal cyst Status post delivery Status post cholecystectomy Family History Father ADHD (attention deficit hyperactivity disorder) Bipolar 1 disorder Mother Interstitial cystitis Social History marital status: household members: spouse and children occupational status: employed Smoking Status: Current every day smoker alcohol intake: current substance use type: does not use Smoking Status: Current every day smoker tobacco type: cigarettes alcohol intake frequency: holidays/special occasions only Substance Use Type: marijuana Exam Narrative Exam Narrative: GENERAL: Alert and oriented x three, well-nourished female in mild distress. HEENT: Head normocephalic, atraumatic, EOMI, pupils reactive, face symmetric, moist mucous membranes NECK: Supple, full range of motion CARDIOVASCULAR: Regular rate and rhythm without murmurs, rubs or gallops. RESPIRATORY: Breath sounds equal bilaterally, no wheezes rales or rhonchi. ABDOMEN: Soft, nontender. Normoactive bowel sounds all 4 quadrants. No guarding or rebound, rigidity, no mass : No CVA tenderness EXTREMITIES: Normal range of motion, no clubbing or edema. Neurovascularly intact NEUROLOGICAL: Cranial nerves II through XII grossly intact. Moving all extremities SKIN: Warm, dry, no petechiae, no rashes or lesions. Initial Vital Signs Initial Vital Signs: Vital Signs Temperature 98.1 F 11/14/20 11:22 Pulse Rate 83 11/14/20 11:22 Respiratory Rate 14 11/14/20 11:22 Blood Pressure 117/81 11/14/20 11:22 Pulse Oximetry 99 11/14/20 11:22 Scores GCS Jose coma scale eye opening: Spontaneous [place] coma scale verbal response: Orientated [place] coma scale motor response: Obey commands [place] coma scale total score: 15 Course Orders Ordered: Discontinued Medications Hydrocodone Bitart/Acetaminophen (Hydrocodone/Acet 5/325 Tablet) 2 tab PO NOW ONE Stop: 11/14/20 16:24 Last Admin: 11/14/20 16:34 Dose: 2 tab Documented by: JESSI Dexamethasone (Dexamethasone 10 Mg/Ml Vial) 10 mg IV NOW ONE Stop: 11/14/20 16:29 Last Admin: 11/14/20 16:36 Dose: 10 mg Documented by: JESSI Diphenhydramine HCl (Diphenhydramine 50 Mg/Ml Vial) 25 mg IV NOW ONE Stop: 11/14/20 11:40 Last Admin: 11/14/20 15:09 Dose: 25 mg Documented by: JESSI Sodium Chloride (Normal Saline 0.9%) 1,000 mls @ 1,000 mls/hr IV BOLUS ONE Stop: 11/14/20 12:38 Last Infusion: 11/14/20 16:42 Dose: 0 mls/hr Documented by: Admin: 11/14/20 14:43 Dose: 1,000 mls/hr Documented by: JESSI Ketorolac Tromethamine (Ketorolac 30 Mg/Ml Vial) 15 mg IV NOW ONE Stop: 11/14/20 11:40 Last Admin: 11/14/20 15:13 Dose: 15 mg Documented by: JESSI Metoclopramide HCl (Metoclopramide 10 Mg/2 Ml Inj) 10 mg IV NOW ONE Stop: 11/14/20 11:40 Last Admin: 11/14/20 15:11 Dose: 10 mg Documented by: JESSI Ondansetron HCl (Ondansetron 4 Mg Odt) 4 mg PO NOW ONE Stop: 11/14/20 11:26 Last Admin: 11/14/20 11:27 Dose: 4 mg Documented by: NEIL Vital Signs Vital signs: Vital Signs - 8 hr 11/14/20 14:31 11/14/20 16:45 Temperature 99.3 F Pulse Rate 78 77 Respiratory Rate 19 Blood Pressure 110/70 112/70 Pulse Oximetry 94 100 MDM - Headache MDM Narrative Medical decision making narrative: This is a 29-year-old female comes in with complaint of migraine which she states is her typical pattern slightly worse intensity but not outside her normal intensity of headaches. Patient states she started having nausea and vomiting today has been able to keep anything down. She has had some improvement her pain although not resolved. Patient does not have any acute neurologic changes or findings concerning they require further imaging or labs at this time. Patient states she used to be on sumatriptan and but that they were not particularly helpful. Discharge Plan Departure Patient Disposition: Home Clinical Impression: Migraine Instructions: DI for Migraine Activity Restrictions/Additional Instructions: I would recommend follow up with your physician if you begin to have a recurrence of your symptoms. You may need to follow up with neurology if you have increasing frequency of symptoms. You may take Tylenol up to a 1000 mg every 8 hours as needed. Please return for fevers, severe rapidly worsening headaches, headaches that are significantly different than your typical pattern, persistent vomiting, new numbness, tingling or weakness of the extremities, inability to ambulate, passing out, or other new or concerning symptoms Prescriptions: No Action metronidazole [Flagyl] 500 mg tablet 500 mg PO TID Qty: 14 RF: 0 cephalexin [Keflex] 500 mg capsule 500 mg PO QID Qty: 20 RF: 0 cyclobenzaprine 10 mg tablet 10 mg PO TID PRN (Reason: muscle spasm) Qty: 14 RF: 0 ketorolac 10 mg tablet 10 mg PO Q6H PRN (Reason: pain) Qty: 14 RF: 0
[2020-11-14] MEDS: HYDROCODONE/ACET 5/325 TABLET 2 TAB PO (16:34)
[2020-11-14] MEDS: DEXAMETHASONE 10 MG/ML VIAL IV (16:36)
[2020-11-14 16:45] VITALS: BP 112/70; PULSE 77; RESP 19; O2SAT 100
== END 2020-11-14 16:47 | disposition home or self-care (01) ==
PROVIDERS: Emergency Provider Emergency Medicine
DX: G43.909 Migraine, unspecified, not intractable, without status migrainosus (principal); R11.2 Nausea with vomiting, unspecified
CPT/HCPCS: 96361; 96374; 96375; 99284; J1100; J1200; J1885; J2765